=== PATIENT | male | born 1995 | race Caucasian/White ===

== ENCOUNTER 2025-03-17 20:01 | Emergency (ER) | payer OTHER ==
[2025-03-17 20:06] VITALS: PULSE 79; RESP 17; O2SAT 97
== END 2025-03-17 21:04 | disposition left against medical advice (07) ==
LOC: ER 20:01
DX: R10.30 Lower abdominal pain, unspecified (principal); K59.00 Constipation, unspecified; Z53.21 Procedure and treatment not carried out due to patient leaving prior to being seen by health care provider